=== PATIENT | female | born 1960 | race Caucasian/White ===

== ENCOUNTER → 2016-09-19 | Outpatient (CLI) | payer BC | LOC: MC.RAD 14:36 | DX: Z12.31 Encounter for screening mammogram for malignant neoplasm of breast (principal) ==

== ENCOUNTER → 2017-09-22 | Outpatient (CLI) | payer BC | LOC: MC.RAD 14:40 | DX: Z12.31 Encounter for screening mammogram for malignant neoplasm of breast (principal); N63.41 Unspecified lump in right breast, subareolar ==

== ENCOUNTER → 2017-09-29 | Outpatient (CLI) | payer BC | LOC: MC.RAD 10:56 | DX: N63.11 Unspecified lump in the right breast, upper outer quadrant (principal); R92.1 Mammographic calcification found on diagnostic imaging of breast ==

== ENCOUNTER → 2018-04-09 | Outpatient (CLI) | payer BC | LOC: MC.RAD 12:56 | DX: D24.1 Benign neoplasm of right breast (principal) | CPT/HCPCS: G0279 ==

== ENCOUNTER → 2018-12-26 | Outpatient (CLI) | payer BC | LOC: MC.RAD 10:42 | DX: Z12.31 Encounter for screening mammogram for malignant neoplasm of breast (principal) ==

== ENCOUNTER → 2019-09-27 | Outpatient (CLI) | payer BC | LOC: COL.VAS 09:37 | DX: H35.60 Retinal hemorrhage, unspecified eye (principal) ==

== ENCOUNTER → 2019-12-30 | Outpatient (CLI) | payer BC | LOC: MC.RAD 13:49 | DX: Z12.31 Encounter for screening mammogram for malignant neoplasm of breast (principal) ==

== ENCOUNTER → 2021-01-25 | Outpatient (CLI) | payer BC | LOC: MC.RAD 14:33 | DX: Z12.31 Encounter for screening mammogram for malignant neoplasm of breast (principal) ==

== ENCOUNTER 2021-10-22 13:54 | Outpatient (CLI) | payer BC ==
[~2021-10-22] VITALS: Ht 160 cm; Wt 63.4 kg
[2021-10-22 14:15] VITALS: BP 129/58; PULSE 71; TEMP 98.6
[2021-10-22] MEDS ORDERED: PRINZIDE 12.5 M1 TA1 PO (15:00)
[2021-10-22] MEDS ORDERED: ZOCOR 20MG20 MG PO (15:01)
[2021-10-22] MEDS ORDERED: LUTEIN20 M1 PO (15:02)
[2021-10-22] MEDS ORDERED: OMEGA-3 1000 MG1 CAP PO (15:02)
[2021-10-22] MEDS ORDERED: CALCIUM 600MG+D1 TAB PO (15:03)
[2021-10-22] MEDS ORDERED: ALLEGRA 180MG180 MG PO (15:03)
[2021-10-22] MEDS ORDERED: VISINE TEARS 0.30 ML OU (15:04)
== END 2021-10-22 18:00 ==
LOC: EUO 13:54
DX: M81.0 Age-related osteoporosis without current pathological fracture (principal)
CPT/HCPCS: J0897

== ENCOUNTER → 2022-07-07 | Outpatient (CLI) | payer BC ==
[~2022-07-07] MED LIST: ALLEGRA 180MG180 MG PO; CALCIUM 600MG+D1 TAB PO; LUTEIN20 M1 PO; OMEGA-3 1000 MG1 CAP PO; PRINZIDE 12.5 M1 TA1 PO; VISINE TEARS 0.30 ML OU; ZOCOR 20MG20 MG PO; ZOCOR 40MG40 MG PO
== END ==
LOC: MC.RAD 10:00
DX: Z12.31 Encounter for screening mammogram for malignant neoplasm of breast (principal)

== ENCOUNTER 2023-11-23 15:00 | Outpatient (CLI) | payer MEDICARE, BC ==
[~2023-11-23] VITALS: Ht 160 cm; Wt 61.3 kg
[~2023-11-23 15:00] MED LIST changes: +IRON 27 MG PO; +PROLIA60 MG/ML SQ
[2023-11-23] MEDS ORDERED: Denosumab 60 MG/ML SYRINGE SQ ONE (15:15)
[2023-11-23 15:42] VITALS: BP 103/67; PULSE 78; TEMP 98.3
--- NOTE | 2023-11-23 15:46 | NUR ---
pT DISCHARGED VIA AMBULATORY.
== END 2023-11-23 15:46 ==
LOC: EUO 15:00
DX: M81.0 Age-related osteoporosis without current pathological fracture (principal)
CPT/HCPCS: J0897